=== PATIENT | female | born 1955 | race Caucasian/White ===

== ENCOUNTER 2018-05-28 17:23 | Emergency (ER) | payer MEDICAID ==
[~2018-05-28] VITALS: Ht 1555.5 cm; Wt 100.0 kg
[~2018-05-28 17:23] MED LIST: CITA-278 PO; QUET25TA PO
[2018-05-28 18:25] LABS: BASOPHILS % (AUTO) 0.2 % (0-1); EOSINOPHILS % (AUTO) 0.4 % (0-6); HEMATOCRIT 40.8 % (35.0-45.0); HEMOGLOBIN 14.2 g/dl (12.0-16.0); LYMPHOCYTES # (AUTO) 1.1 X10'3 (1.1-4.8); LYMPHOCYTES % (AUTO) 13.1 % (21-51); MEAN CORPUSCULAR HEMOGLOBIN 31.7 PG (27.0-31.0); MEAN CORPUSCULAR HGB CONC 34.8 % (33.0-36.5); MEAN CORPUSCULAR VOLUME 91.1 FL (78-98); MEAN PLATELET VOLUME 8.2 FL (7.4-10.4); MONOCYTES # (AUTO) 0.5 X10'3 (0-0.9); MONOCYTES % (AUTO) 5.6 % (2-12); NEUTROPHILS # (AUTO) 6.8 X10'3 (1.8-7.7); NEUTROPHILS % (AUTO) 80.7 % (42-75); PLATELET COUNT 260 X10'3 (140-440); RED BLOOD COUNT 4.48 X10'6 (4.20-5.60); RED CELL DISTRIBUTION WIDTH 13.4 % (11.5-14.5); WHITE BLOOD COUNT 8.4 X10'3 (4.5-11.0)
[2018-05-28 18:45] LABS: ALANINE AMINOTRANSFERASE 36 U/L (12-78); ALBUMIN 3.9 G/DL (3.4-5.0); ALBUMIN/GLOBULIN RATIO 1.1 (1.1-1.5); ALKALINE PHOSPHATASE 95 IU/L (46-116); ANION GAP 11 (8-16); ASPARTATE AMINO TRANSFERASE 25 U/L (10-37); BILIRUBIN,TOTAL 0.4 MG/DL (0.1-1.0); BLOOD UREA NITROGEN 11 MG/DL (7-18); BUN/CREATININE RATIO 11.7 (6.6-38.0); CALCIUM 10.2 MG/DL (8.5-10.1); CHLORIDE 106 MMOL/L (99-107); CREATININE 0.94 MG/DL (0.40-0.90); GLUCOSE 169 MG/DL (70-104); POTASSIUM 3.6 MMOL/L (3.5-5.1); SODIUM 143 MMOL/L (135-145); TOTAL CARBON DIOXIDE 26.3 MMOL/L (24-32); TOTAL PROTEIN 7.5 G/DL (6.4-8.2); eGFR 61 ML/MIN
[2018-05-28 18:56] LABS: ETHANOL < 0.010 GM/DL (0.0-0.010)
[2018-05-28] MEDS ORDERED: QUET25TA PO (19:57)
[2018-05-28] MEDS ORDERED: CITA20TA19 PO (20:31)
[2018-05-28 20:42] LABS: URINE HCG NEGATIVE (NEG)
[2018-05-28 20:48] LABS: CLARITY,URINE CLEAR (Clear); COLOR,URINE YELLOW (Yellow); GLUCOSE, URINE NEGATIVE (Neg); KETONES,URINE 15 mg/dl (Neg); LEUKOCYTE ESTERASE ,URINE NEGATIVE (Neg); NITRITES, URINE NEGATIVE (Neg); OCCULT BLOOD,URINE NEGATIVE (Neg); PROTEIN,URINE TRACE mg/dl (Neg)
[2018-05-28] MEDS: QUEtiapine 25mg tablet PO SCH (21:00)
[2018-05-28 21:01] LABS: URINE AMPHETAMINE SCREEN NEGATIVE (Neg); URINE BARBITUATE SCREEN NEGATIVE (Neg); URINE BENZODIAZEPINES SCREEN NEGATIVE (Neg); URINE CANNABINOID SCREEN NEGATIVE (Neg); URINE COCAINE SCREEN NEGATIVE (Neg); URINE METHADONE SCREEN NEGATIVE (Neg); URINE OPIATE SCREEN NEGATIVE (Neg); URINE PHENCYCLIDINE SCREEN NEGATIVE (Neg)
[2018-05-28 21:05] LABS: UA COLLECTION TYPE VOIDED
[2018-05-28 21:06] LABS: BACTERIA,URINE FEW /HPF (Neg); RBC,URINE 0-2 /HPF (0-2); SQUAMOUS EPITHELIAL CELL,UR FEW /LPF (FEW); WBC,URINE 0-4 /HPF (0-4)
[2018-05-29] MEDS ORDERED: citalopram 20mg tablet PO SCH (08:00)
[2018-05-29] MEDS ORDERED: CITA10TA9 PO (09:56)
[2018-05-29] MEDS ORDERED: CITALOpram 10mg tablet PO SCH (10:07)
[2018-05-29] MEDS ORDERED: haloperidol lactate 5mg/ml inj IM PRN (13:25)
[2018-05-29] MEDS ORDERED: diphenhydrAMINE 50 mg/ml inj IM PRN (13:25)
[2018-05-29] MEDS: LORazepam 2 mg/ml vial IM PRN (15:34)
[2018-05-29] MEDS: QUEtiapine 25mg tablet PO SCH (20:01)
[2018-05-29] MEDS: OLANZapine 5mg rapidly disint. tablet PO SCH (20:01)
[2018-05-30] MEDS: OLANZapine 5mg rapidly disint. tablet PO SCH ×2 (09:17→18:19)
[2018-05-30] MEDS: QUEtiapine 25mg tablet PO SCH (20:32)
[2018-05-30] MEDS: LORazepam 2 mg/ml vial IM PRN (23:20)
[2018-05-31] MEDS: OLANZapine 5mg rapidly disint. tablet PO SCH (08:00)
[2018-05-31] MEDS ORDERED: LORazepam 1 MG tablet PO PRN (09:20)
[2018-05-31] MEDS ORDERED: haloperidol 5mg tablet PO PRN (09:20)
[2018-05-31] MEDS ORDERED: diphenhydrAMINE 25mg capsule PO PRN (09:20)
[2018-05-31 11:31] VITALS: BP 122/82
== END 2018-05-31 11:00 | disposition home or self-care (01) ==
LOC: ER 17:23
DX: F23 Brief psychotic disorder (principal); F32.9 Major depressive disorder, single episode, unspecified; G47.00 Insomnia, unspecified; Z90.710 Acquired absence of both cervix and uterus; Z88.0 Allergy status to penicillin; Z88.1 Allergy status to other antibiotic agents; Z79.899 Other long term (current) drug therapy
CPT/HCPCS: 36415; 80053; 80305; 80320; 81001; 81025; 84443; 85025; 96372; 99284; J1200; J1630; J2060; Q0163